=== PATIENT | male | born 1975 | race African-American/Black ===

== ENCOUNTER 2024-10-03 09:31 | Outpatient (REF) | payer OTHER, SELFPAY | END 2024-10-03 09:32 | disposition home or self-care (01) | LOC: HO.HOSX 09:31 | PROVIDERS: PCP Physician Assistant; Referring Provider Physician Assistant; Visit Provider Physician Assistant | DX: M54.6 Pain in thoracic spine (principal) | CPT/HCPCS: 72072; 99202 ==

== ENCOUNTER 2024-10-03 09:31 | Outpatient (AMB) | payer OTHER, SELFPAY ==
--- NOTE | 2024-10-03 09:33 | A.SPINEOV_ITS ---
Intake Visit Reasons: thoracic radiculopathy Intake Note: Mr. Bullard is here today c/o back pain. 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 He is a pleasant 49 y/o male who comes in today with a chief complaint of midthoracic back pain with some reported radiation around his bilateral ribcage. He reports that this began roughly 1 year ago after moving between living spaces when he was carrying heavy furniture. He denies any burning/numbness/tingling associated with the pain. He does report a pertinent past medical history of previous cervical spine surgery (C3-5 ACDF completed at [facility] in [place] in 2012). He reports that his neck pain has been completely resolved since the surgery. He responded well to a recent left T6-7 transforaminal epidural steroid injection, and reports about 80% relief of pain for 2-3 weeks. He has been to physical therapy which he found was modestly helpful. He reports that increased activity with his upper extremities exacerbates his pain and that resting/reducing activity helps to alleviate his pain. He is currently taking naproxen and muscle relaxers in an effort to help mitigate the pain. Notably he does report a few episodes of loss of balance/falls which occurred over the course of the last year. He associates these falls with the onset of his pain. PMH: Hypothyroidism, migraines, asthma. Social hx: Patient denies any alcohol or substance use. Does not smoke. Medications: Trazodone, Sumatriptan, Levothyroxine, Montelukast, amitriptyline, mometasone, ProAir inhaler, azelastine, naproxen, Nurtec, cyclobenzaprine. Allergies: NKDA Physical exam: The patient has 5/5 strength in his upper and lower extremities. He denies any significant sensational deficits. His reflexes are 2+ intact diffusely. He ambulates well without a spastic gait. When describing his pain he points directly to the midthoracic spine which I would say is right around T6. (-) Mcdowell's, (-) clonus. Imaging review: Patient forgot his MRI disc and will drop it off later today for review of actual images. MRI report of thoracic spine states that the patient has a small left sided disc protrusion at C6-7. I will need to review the report and see if this can be properly assessed on thoracic imaging. Patient was sent for X-rays of the cervical spine during this visit today which showed no obvious evidence of subluxation or movement of the vertebral bodies. Impression: Breanna is a pleasant 49-year-old male who comes in today with a chief complaint of midthoracic back pain. He does report what sounds like a radicular component wrapping around his bilateral ribcage. His x-ray imaging did not show any movement. He does not have any myelopathic reflexes on examination. His MRI report only provides limited information. Because of his disclosed good response to the epidural steroid injections I am interested in reviewing his thoracic MRI to rule out an acute nerve root impingement that may be causing this problem. Given that, his history and exam today is most consistent with a problem that is of musculoskeletal origin. I do not believe that something such as zoster would be causing this in the absence of unilateral radiculopathy or burning/tingling. I will call the patient after he drops off his MRI and I have a chance to review it. Thank you for allowing us to care for your patient. The total time spent with this visit with this patient was 45 minutes reviewing history, physical exam, MRI imaging review, and implementation of treatment plan or further diagnostic testing Figueroa Jay MD,PhD [facility] Orders: Orders XR thoracic spine 3V Today M54.6 - Pain in thoracic spine Coding Level of Care Code New Pt Level 4 (16900) Diagnoses Thoracic back pain M54.6
== END 2024-10-03 10:23 | disposition home or self-care (01) ==
LOC: HO.HNS 09:32
PROVIDERS: PCP Physician Assistant; Referring Provider Physician Assistant; Visit Provider Physician Assistant
DX: M54.6 Pain in thoracic spine (principal)
CPT/HCPCS: 99204